=== PATIENT | male | born 1960 | race Two or more races ===

== ENCOUNTER 2020-04-19 14:05 | Inpatient (IN) | payer OTHER ==
[~2020-04-19] VITALS: Ht 172.7 cm; Wt 87.5 kg
[2020-04-19] MEDS ORDERED: methylPREDNISolone SOD SUCC 125 MG/2 ML VL IV ONE (14:15)
[2020-04-19] MEDS ORDERED: ACETAMINOPHEN 325 MG TAB PO ONE ×2 (14:39→14:45)
[2020-04-19 15:34] LABS: Eosinophils # (auto) 0 10 ^3/uL (0-0.8); Hemoglobin 14.5 g/dL (13.5-17.5); Mean Corpuscular Volume 102.6 fL (80.0-100.0); Monocytes # (auto) 0.3 10 ^3/uL (0-1.3); Nucleated Red Blood Cells % 0.1 %; Red Cell Distribution Width 13.6 % (11.8-14.3)
[2020-04-19 15:36] LABS: Basophils # (auto) 0 10 ^3/uL (0-0.2); Basophils % (auto) 0.3 % (0.0-2.0); Eosinophils % (auto) 0.1 % (0.0-7.0); Hematocrit 41.7 % (41.0-53.0); Lymphocytes # (auto) 0.6 10 ^3/uL (0.4-5.4); Lymphocytes % (auto) 12.5 % (10.0-50.0); Mean Corpuscular Hemoglobin 35.7 pg (28.0-32.0); Mean Corpuscular Hgb Conc. 34.9 g/dL (32.0-36.0); Monocytes % (auto) 6.8 % (0.0-12.0); Neutrophils % (auto) 80.3 % (37.0-80.0); Platelet Count (auto) 153 10^3/uL (140-450); Red Blood Cells 4.06 10^6/uL (4.5-5.90); White Blood Cell 4.9 10^3/uL (4.4-10.8)
[2020-04-19 15:37] LABS: Alanine Aminotransferase 175 U/L (16-61); Albumin 3.1 g/dL (3.4-5.0); Anion Gap 6 (5-15); Blood Urea Nitrogen 19 mg/dL (7-18); Calcium 8.4 mg/dL (8.5-10.1); Carbon Dioxide 27 mmol/L (21-32); Chloride 104 mmol/L (98-107); Glucose 104 mg/dL (74-106); Potassium 3.7 mmol/L (3.5-5.1); Sodium 137 mmol/L (136-145)
[2020-04-19 15:45] LABS: Alkaline Phosphatase 132 U/L (45-117); Aspartate Aminotransferase 188 U/L (15-37); BUN/Creatinine Ratio 19.2; Bilirubin, Total 0.4 mg/dL (0.2-1.0); CRP High Sensitivity 8.75 mg/dL (< 0.3); GFR African American 99 mL/min; GFR Non-African American 82 mL/min; Total Protein 7.9 g/dL (6.4-8.2)
[2020-04-19] MEDS ORDERED: ASCORBIC ACID 500 MG TAB PO ONE (16:30)
[2020-04-19] MEDS ORDERED: AZITHROMYCIN 500MG/ 250ML 250 ML IV ONE (16:30)
[2020-04-19] MEDS ORDERED: ZINC SULFATE 220mg CAP or TAB PO ONE (16:30)
[2020-04-19] MEDS ORDERED: ONDANSETRON HCL 4 MG/2 ML VIAL IV ONE (18:15)
[2020-04-19] MEDS ORDERED: NITROGLYCERIN 0.4 MG SL TAB SL PRN (19:45)
[2020-04-19] MEDS ORDERED: REMDESIVIR PER PHARMACY 0 ML IV SCH (19:45)
[2020-04-19] MEDS ORDERED: MORPHINE SULF INJ 2 MG/ML SYRINGE 1ML IV PRN ×2 (19:45)
[2020-04-19] MEDS ORDERED: ONDANSETRON HCL 4 MG/2 ML VIAL IV PRN (19:45)
[2020-04-19] MEDS: guaiFENesin-DM 100/10mg/5ml SYR PO PRN (21:46)
[2020-04-19] MEDS: HYDROcodone-ACET 5/325MG TAB PO PRN (21:46)
[2020-04-19 21:56] LABS: Urine WBC None Seen /hpf (0 - 3)
[2020-04-19] MEDS: BUDESONIDE (INHALATION) 180 MCG IH IN SCH (22:00)
[2020-04-19] MEDS ORDERED: REMDESIVIR 200 MG in NS 210ml LOADING DOSE ADULT IV ONE (22:00)
[2020-04-19] MEDS ORDERED: PANTOPRAZOLE 40 MG/10 ML VIAL INJ IV SCH (22:00)
[2020-04-19 22:34] LABS: Urine Bacteria NONE SEEN /hpf (None Seen); Urine Blood TRACE /uL (Negative)
[2020-04-19 22:40] VITALS: BP 125/71
[2020-04-19 23:54] VITALS: BP 120/67
[2020-04-20] VITALS: BP 125/71
[2020-04-20 01:00] VITALS: BP 126/78
[2020-04-20] MEDS: guaiFENesin-DM 100/10mg/5ml SYR PO PRN ×2 (05:44→19:50)
[2020-04-20] MEDS: HYDROcodone-ACET 5/325MG TAB PO PRN ×3 (05:49→23:06)
[2020-04-20 07:25] LABS: Basophils # (auto) 0 10 ^3/uL (0-0.2); Eosinophils # (auto) 0 10 ^3/uL (0-0.8); Hematocrit 39.6 % (41.0-53.0); Hemoglobin 13.7 g/dL (13.5-17.5); Lymphocytes # (auto) 0.5 10 ^3/uL (0.4-5.4); Monocytes # (auto) 0.2 10 ^3/uL (0-1.3)
[2020-04-20 07:30] LABS: Basophils % (auto) 0.2 % (0.0-2.0); Lymphocytes % (auto) 10.8 % (10.0-50.0); Mean Corpuscular Hemoglobin 35.4 pg (28.0-32.0); Mean Corpuscular Hgb Conc. 34.6 g/dL (32.0-36.0); Mean Corpuscular Volume 102.4 fL (80.0-100.0); Monocytes % (auto) 5.2 % (0.0-12.0); Neutrophils # (auto) 3.5 10 ^3/uL (1.6-8.6); Neutrophils % (auto) 83.8 % (37.0-80.0); Nucleated Red Blood Cells % 0.1 %; Platelet Count (auto) 177 10^3/uL (140-450); Red Blood Cells 3.87 10^6/uL (4.5-5.90); Red Cell Distribution Width 13.6 % (11.8-14.3); White Blood Cell 4.2 10^3/uL (4.4-10.8)
[2020-04-20 07:41] LABS: Albumin 2.8 g/dL (3.4-5.0); Calcium 8.4 mg/dL (8.5-10.1); Potassium 3.9 mmol/L (3.5-5.1)
[2020-04-20 07:55] LABS: BUN/Creatinine Ratio 22.8; Bilirubin, Total 0.3 mg/dL (0.2-1.0); CRP High Sensitivity 9.84 mg/dL (< 0.3); Total Protein 7.6 g/dL (6.4-8.2)
[2020-04-20 08:00] VITALS: BP 114/72
[2020-04-20] MEDS: BUDESONIDE (INHALATION) 180 MCG IH IN SCH ×2 (10:00→20:15)
[2020-04-20] MEDS ORDERED: DexAMETHasone SOD PHOS 10MG/1ML VIAL INJ IV SCH (10:00)
[2020-04-20] MEDS ORDERED: FAMOTIDINE 20 MG TAB PO SCH (10:00)
[2020-04-20] MEDS: cefTRIAXone 1GM/50ML D5W 50 ML IV SCH (10:02)
[2020-04-20] MEDS: AZITHROMYCIN 500MG/ 250ML 250 ML IV SCH (10:02)
[2020-04-20] MEDS: ZINC SULFATE 220mg CAP or TAB PO SCH (10:03)
[2020-04-20] MEDS: ASCORBIC ACID 1,000 MG TAB PO SCH (10:03)
[2020-04-20] MEDS: CHOLECALCIFEROL (VITD3) 2,000 UNIT CAP PO SCH (10:05)
[2020-04-20] MEDS: ACETAMINOPHEN 500 MG TAB PO PRN (10:30)
[2020-04-20] MEDS ORDERED: THIAMINE 100mg/ml INJ (200mg/2ml VIAL) IV ONE (13:00)
[2020-04-20] MEDS: REMDESIVIR 100 MG in SODIUM CHL 0.9% 250 ML IV SCH (15:00)
[2020-04-20 16:00] VITALS: BP 122/75
[2020-04-20] MEDS ORDERED: ROSU5TAB5 PO (16:23)
[2020-04-20] MEDS ORDERED: BENZ100C97 PO (16:25)
[2020-04-20] MEDS ORDERED: ACET1CAP14 PO (16:25)
[2020-04-20] MEDS: FAMOTIDINE (10MG/ML) 2ML VL IV SCH (22:48)
[2020-04-21] VITALS: BP 113/64
[2020-04-21] MEDS: ALBUTEROL SULF HFA 90MCG INH 200DOSE IN PRN ×2 (02:30→19:54)
[2020-04-21] MEDS: guaiFENesin-DM 100/10mg/5ml SYR PO PRN ×3 (05:47→21:51)
[2020-04-21] MEDS: HYDROcodone-ACET 5/325MG TAB PO PRN ×3 (05:48→21:51)
[2020-04-21 08:00] VITALS: BP 102/66
[2020-04-21] MEDS: cefTRIAXone 1GM/50ML D5W 50 ML IV SCH (08:31)
[2020-04-21] MEDS: DexAMETHasone SOD PHOS 4 MG/1ML SDV INJ IV SCH (08:31)
[2020-04-21] MEDS: BUDESONIDE (INHALATION) 180 MCG IH IN SCH ×2 (08:31→19:54)
[2020-04-21] MEDS: THIAMINE 100mg/ml INJ (200mg/2ml VIAL) IV SCH (08:31)
[2020-04-21] MEDS: FAMOTIDINE (10MG/ML) 2ML VL IV SCH ×2 (08:32→21:50)
[2020-04-21] MEDS: AZITHROMYCIN 500MG/ 250ML 250 ML IV SCH (08:33)
[2020-04-21] MEDS: ASCORBIC ACID 1,000 MG TAB PO SCH (08:33)
[2020-04-21] MEDS: ZINC SULFATE 220mg CAP or TAB PO SCH (08:33)
[2020-04-21] MEDS: CHOLECALCIFEROL (VITD3) 2,000 UNIT CAP PO SCH (08:34)
[2020-04-21 08:46] LABS: Albumin 2.8 g/dL (3.4-5.0); Calcium 8.5 mg/dL (8.5-10.1); Potassium 3.7 mmol/L (3.5-5.1)
[2020-04-21 08:49] LABS: Bilirubin, Total 0.4 mg/dL (0.2-1.0); Total Protein 7.2 g/dL (6.4-8.2)
[2020-04-21] MEDS ORDERED: LACTULOSE 20Gm/30ML SOLN PO ONE (12:45)
[2020-04-21] MEDS: REMDESIVIR 100 MG in SODIUM CHL 0.9% 250 ML IV SCH (14:54)
[2020-04-21 16:00] VITALS: BP 117/72
[2020-04-21] MEDS: LACTULOSE 20Gm/30ML SOLN PO SCH (21:45)
[2020-04-22] VITALS: BP 105/71
[2020-04-22] MEDS: guaiFENesin-DM 100/10mg/5ml SYR PO PRN ×2 (06:18→15:43)
[2020-04-22] MEDS: HYDROcodone-ACET 5/325MG TAB PO PRN ×2 (06:19→18:30)
[2020-04-22 07:32] LABS: Basophils # (auto) 0 10 ^3/uL (0-0.2); Basophils % (auto) 0.1 % (0.0-2.0); Eosinophils # (auto) 0 10 ^3/uL (0-0.8); Lymphocytes # (auto) 0.9 10 ^3/uL (0.4-5.4); Monocytes # (auto) 0.8 10 ^3/uL (0-1.3)
[2020-04-22 07:34] LABS: Hematocrit 39.2 % (41.0-53.0); Hemoglobin 13.8 g/dL (13.5-17.5); Lymphocytes % (auto) 12.1 % (10.0-50.0); Mean Corpuscular Hemoglobin 35.6 pg (28.0-32.0); Mean Corpuscular Hgb Conc. 35.1 g/dL (32.0-36.0); Mean Corpuscular Volume 101.3 fL (80.0-100.0); Monocytes % (auto) 11.1 % (0.0-12.0); Neutrophils # (auto) 5.4 10 ^3/uL (1.6-8.6); Neutrophils % (auto) 76.7 % (37.0-80.0); Nucleated Red Blood Cells % 0.2 %; Platelet Count (auto) 237 10^3/uL (140-450); Red Blood Cells 3.87 10^6/uL (4.5-5.90); Red Cell Distribution Width 13.7 % (11.8-14.3); White Blood Cell 7.1 10^3/uL (4.4-10.8)
[2020-04-22] MEDS: BUDESONIDE (INHALATION) 180 MCG IH IN SCH ×2 (07:40→19:35)
[2020-04-22] MEDS: ALBUTEROL SULF HFA 90MCG INH 200DOSE IN PRN ×2 (07:40→19:35)
[2020-04-22 07:51] LABS: Albumin 2.8 g/dL (3.4-5.0); BUN/Creatinine Ratio 33.3; Bilirubin, Total 0.5 mg/dL (0.2-1.0); Calcium 8.3 mg/dL (8.5-10.1); Potassium 3.9 mmol/L (3.5-5.1); Total Protein 7.2 g/dL (6.4-8.2)
[2020-04-22 08:00] VITALS: BP 111/74
[2020-04-22] MEDS: cefTRIAXone 1GM/50ML D5W 50 ML IV SCH (09:29)
[2020-04-22] MEDS: FAMOTIDINE (10MG/ML) 2ML VL IV SCH ×2 (09:30→22:03)
[2020-04-22] MEDS: THIAMINE 100mg/ml INJ (200mg/2ml VIAL) IV SCH (09:30)
[2020-04-22] MEDS: DexAMETHasone SOD PHOS 4 MG/1ML SDV INJ IV SCH (09:30)
[2020-04-22] MEDS: AZITHROMYCIN 500MG/ 250ML 250 ML IV SCH (09:31)
[2020-04-22] MEDS: ASCORBIC ACID 1,000 MG TAB PO SCH (09:31)
[2020-04-22] MEDS: ZINC SULFATE 220mg CAP or TAB PO SCH (09:31)
[2020-04-22] MEDS: CHOLECALCIFEROL (VITD3) 2,000 UNIT CAP PO SCH (09:31)
[2020-04-22] MEDS: LACTULOSE 20Gm/30ML SOLN PO SCH ×2 (10:00→22:00)
[2020-04-22] MEDS ORDERED: POTASSIUM CHL 20 Meq TABLET PO ONE (13:15)
[2020-04-22] MEDS ORDERED: FUROSEMIDE 20 MG/2 ML VIAL IV ONE (13:15)
[2020-04-22] MEDS: REMDESIVIR 100 MG in SODIUM CHL 0.9% 250 ML IV SCH (15:25)
[2020-04-22] MEDS: ACETAMINOPHEN 500 MG TAB PO PRN (15:43)
[2020-04-22 15:51] VITALS: BP 129/75
[2020-04-23] VITALS: BP 113/68
[2020-04-23] MEDS: guaiFENesin-DM 100/10mg/5ml SYR PO PRN ×2 (04:31→20:39)
[2020-04-23 07:16] LABS: Albumin 2.9 g/dL (3.4-5.0); Calcium 8.4 mg/dL (8.5-10.1); Potassium 3.7 mmol/L (3.5-5.1)
[2020-04-23 07:20] LABS: BUN/Creatinine Ratio 26.2; Bilirubin, Total 0.6 mg/dL (0.2-1.0); Total Protein 7.2 g/dL (6.4-8.2)
[2020-04-23 08:00] VITALS: BP 106/71
[2020-04-23] MEDS: DexAMETHasone SOD PHOS 4 MG/1ML SDV INJ IV SCH (09:06)
[2020-04-23] MEDS: cefTRIAXone 1GM/50ML D5W 50 ML IV SCH (09:07)
[2020-04-23] MEDS: ASCORBIC ACID 1,000 MG TAB PO SCH (09:07)
[2020-04-23] MEDS: THIAMINE 100mg/ml INJ (200mg/2ml VIAL) IV SCH (09:07)
[2020-04-23] MEDS: FAMOTIDINE (10MG/ML) 2ML VL IV SCH ×2 (09:07→22:45)
[2020-04-23] MEDS: ZINC SULFATE 220mg CAP or TAB PO SCH (09:08)
[2020-04-23] MEDS: LACTULOSE 20Gm/30ML SOLN PO SCH ×3 (09:08→22:45)
[2020-04-23] MEDS: CHOLECALCIFEROL (VITD3) 2,000 UNIT CAP PO SCH (09:08)
[2020-04-23] MEDS: BUDESONIDE (INHALATION) 180 MCG IH IN SCH ×2 (10:30→19:33)
[2020-04-23] MEDS: AZITHROMYCIN 500MG/ 250ML 250 ML IV SCH (11:00)
[2020-04-23] MEDS: HYDROcodone-ACET 5/325MG TAB PO PRN ×2 (13:33→20:39)
[2020-04-23] MEDS: REMDESIVIR 100 MG in SODIUM CHL 0.9% 250 ML IV SCH (15:30)
[2020-04-23 16:00] VITALS: BP 104/68
[2020-04-23] MEDS: ALBUTEROL SULF HFA 90MCG INH 200DOSE IN PRN (19:33)
[2020-04-24 00:01] VITALS: BP 104/62
[2020-04-24 08:00] VITALS: BP 108/55
[2020-04-24] MEDS: LACTULOSE 20Gm/30ML SOLN PO SCH (10:00)
[2020-04-24] MEDS ORDERED: DexAMETHasone 4 MG TAB PO SCH (10:00)
[2020-04-24] MEDS: FAMOTIDINE (10MG/ML) 2ML VL IV SCH (10:15)
[2020-04-24] MEDS: AZITHROMYCIN 500MG/ 250ML 250 ML IV SCH (10:15)
[2020-04-24] MEDS: ZINC SULFATE 220mg CAP or TAB PO SCH (10:15)
[2020-04-24] MEDS: THIAMINE 100mg/ml INJ (200mg/2ml VIAL) IV SCH (10:15)
[2020-04-24] MEDS: cefTRIAXone 1GM/50ML D5W 50 ML IV SCH (10:15)
[2020-04-24] MEDS: BUDESONIDE (INHALATION) 180 MCG IH IN SCH (10:15)
[2020-04-24] MEDS: ASCORBIC ACID 1,000 MG TAB PO SCH (10:16)
[2020-04-24] MEDS: CHOLECALCIFEROL (VITD3) 2,000 UNIT CAP PO SCH (10:16)
[2020-04-24] MEDS: HYDROcodone-ACET 5/325MG TAB PO PRN (10:16)
[2020-04-24] MEDS: guaiFENesin-DM 100/10mg/5ml SYR PO PRN (12:43)
[2020-04-24] MEDS ORDERED: IBUPROFEN 400 MG TAB PO ONE (14:00)
[2020-04-24 16:00] VITALS: BP 134/69
== END 2020-04-24 18:05 | disposition home or self-care (01) | DRG 871 ==
LOC: ER 14:05 → EDBD 14:05 → TELE 19:44 → TELE-WESTW 22:39
PROVIDERS: ADMIT Nurse Practitioner Acute Care; ATTEND Internal Medicine
PROC: XW033E5 Introduction of Remdesivir Anti-infective into Peripheral Vein, Percutaneous Approach, New Technology Group 5 (ICD-10-PCS; principal; 2020-04-20)
DX: A41.89 Other specified sepsis (principal); U07.1 COVID-19; J96.01 Acute respiratory failure with hypoxia; R65.20 Severe sepsis without septic shock; E78.5 Hyperlipidemia, unspecified; E66.9 Obesity, unspecified; R74.01 Elevation of levels of liver transaminase levels; D89.839 Cytokine release syndrome, grade unspecified; I10 Essential (primary) hypertension; Z79.899 Other long term (current) drug therapy
CPT/HCPCS: 36415; 71045; 80053; 81001; 82270; 82728; 83605; 83615; 84443; 84484; 85025; 85379; 86141; 87040; 87426; 87804; 93005; 94640; 96365; 96366; 96375; G0378; J0696; J1100; J2405; J3490